=== PATIENT | male | born 1965 | race Hispanic/Latino ===

== ENCOUNTER 2020-09-06 14:45 | Outpatient (CLI) | payer BC ==
--- NOTE | 2020-09-06 17:38 | ULT ---
TESTICULAR ULTRASOUND: 09/06/20 INDICATIONS: Testicular pain. FINDINGS: Both testicles exhibit a normal sonographic appearance. Both testicles have normal and symmetric size . Color Doppler with spectral analysis demonstrate a normal and equal blood flow to both testicles. Epi didymi appear unremarkable. There is a small to moderate right hydrocele. Numerous vascular structures are seen in the left scrotum with valsalva consistent with a left varico saran. IMPRESSION: 1. Testicles appear unremarkable. 2. Small right hydrocele. 3. Left scrotal varicocele. POS: [facility]W
== END 2020-09-06 14:46 | disposition home or self-care (01) ==
LOC: BICULT 14:45
PROVIDERS: ATTEND Family Medicine
DX: N50.811 Right testicular pain (principal); N50.812 Left testicular pain; N43.3 Hydrocele, unspecified; I86.1 Scrotal varices
CPT/HCPCS: 76870; 93976